=== PATIENT | male | born 1975 | race African-American/Black ===

== ENCOUNTER 2022-05-05 13:41 | Emergency (ER) | payer OTHER | END 2022-05-05 16:11 | disposition short-term general hospital (02) | LOC: ERS 13:41 | DX: T20.26XA Burn of second degree of forehead and cheek, initial encounter (principal); T20.24XA Burn of second degree of nose (septum), initial encounter; T20.23XA Burn of second degree of chin, initial encounter; T20.22XA Burn of second degree of lip(s), initial encounter; T22.211A Burn of second degree of right forearm, initial encounter; T24.202A Burn of second degree of unspecified site of left lower limb, except ankle and foot, initial encounter; T24.201A Burn of second degree of unspecified site of right lower limb, except ankle and foot, initial encounter; T28.0XXA Burn of mouth and pharynx, initial encounter; W40.1XXA Explosion of explosive gases, initial encounter; Y92.69 Other specified industrial and construction area as the place of occurrence of the external cause | CPT/HCPCS: 99284; G0390 ==